=== PATIENT | male | born 1975 ===

== ENCOUNTER 2020-11-29 12:02 | Emergency (ER) | payer MEDICARE ==
--- NOTE | 2020-11-29 12:28 | Event Note ---
ED Screening Note ED Screening Note: Brought in by sister, history of developmental disability Sister is no longer able to care for all 3 brothers She states that they have been running away from home and getting into some trouble She states that she would like assistance in placing them somewhere She states that she talk to a mental health assistance and they advised to send to the ER This initial assessment/diagnostic orders/clinical plan/treatment(s) is/are subject to change based on patients health status, clinical progression and re- assessment by fellow clinical providers in the ED. Further treatment and workup at subsequent clinical providers discretion. Patient/guardian urged not to elope from the ED as their condition may be serious if not clinically assessed and managed. Initial orders include: Spoke with Dr. Cabezas, ER attending who advised to order the mental health clearance order set
[2020-11-29 12:30] VITALS: BP 153/69
[2020-11-29 13:05] LABS: Basophils # (Auto) 0.1 K/mm3 (0.0-0.1); Basophils % (Auto) 1.2 % (0.0-1.8); Eosinophils # (Auto) 0.3 K/mm3 (0.0-0.4); Eosinophils % (Auto) 4.1 % (0.0-4.3); Hematocrit 38.5 % (35.5-45.6); Hemoglobin 13.1 gm/dl (11.8-15.2); Lymphocytes # (Auto) 3.2 K/mm3 (1.2-5.4); Mean Corpuscular HGB Conc 34 % (32-34); Mean Corpuscular Volume 83 fl (84-94); Monocytes # (Auto) 0.5 K/mm3 (0.0-0.8); Monocytes % (Auto) 7.2 % (0.0-7.3); Platelet Count 303 K/mm3 (140-440); Red Blood Count 4.66 M/mm3 (3.65-5.03); Red Cell Distribution Width 14.6 % (13.2-15.2)
[2020-11-29 13:32] LABS: Alanine Aminotransferase 26 units/L (7-56); BUN/Creatinine Ratio 10; Blood Urea Nitrogen 12 mg/dL (9-20); Calcium 9.8 mg/dL (8.4-10.2); Hemolysis Index 1
--- NOTE | 2020-11-29 14:26 | Emergency Department Report ---
ED Psych HPI - General Chief Complaint: Medical Clearance Stated Complaint: MEDICAL CLEARANCE Time Seen by Provider: 11/29/20 12:26 Source: patient Mode of arrival: Ambulatory - History of Present Illness Initial Comments: Patient is 45 years old male with history of mental disability, hypertension diabetes. Patient brought to the emergency room by his sister accompanied by hi s 2 other brother with the same problem. Sister stated that she is worried about them getting hurt because they act friendly to people and people sometimes get angry with them and she had witnessed several times that somebody is pointing gun to them. She stated that she is unable to take care of them. She stated that sometimes he will become very aggressive in the house and start smashing things. He denied any suicidal or homicidal ideation. Patient stated that he is not hearing any voices or having visual hallucination. MD Complaint: other - Related Data Allergies Allergy/AdvReac Type Severity Reaction Status Date / Time No Known Allergies Allergy Unverified 11/29/20 12:27 ED Review of Systems ROS: Stated complaint: MEDICAL CLEARANCE Other details as noted in HPI Comment: All other systems reviewed and negative Constitutional: denies: chills, fever Respiratory: denies: cough, shortness of breath, SOB with exertion, SOB at rest Cardiovascular: denies: chest pain, palpitations Gastrointestinal: denies: abdominal pain, nausea, vomiting, diarrhea, constipation, hematemesis, melena, hematochezia Genitourinary: denies: urgency Musculoskeletal: denies: back pain Neurological: denies: headache, weakness, numbness, paresthesias, confusion, abnormal gait ED Past Medical Hx - Past Medical History Previous Medical History?: Yes Hx Hypertension: Yes Hx Diabetes: Yes - Social History Smoking Status: Never Smoker Substance Use Type: None ED Physical Exam - General Limitations: No Limitations General appearance: alert, in no apparent distress - Head Head exam: Present: atraumatic, normocephalic, normal inspection - Eye Eye exam: Present: normal appearance - ENT ENT exam: Present: normal exam, normal orophraynx, mucous membranes moist - Neck Neck exam: Present: normal inspection, full ROM. Absent: tenderness, meningismus, lymphadenopathy, thyromegaly - Respiratory Respiratory exam: Present: normal lung sounds bilaterally - Cardiovascular Cardiovascular Exam: Present: regular rate, normal rhythm, normal heart sounds - GI/Abdominal GI/Abdominal exam: Present: soft, normal bowel sounds. Absent: distended, tenderness, guarding, rebound, rigid, organomegaly, mass, bruit, pulsatile mass, hernia - Extremities Exam Extremities exam: Present: normal inspection, full ROM, normal capillary refill. Absent: tenderness, pedal edema, joint swelling, calf tenderness - Back Exam Back exam: Present: normal inspection, full ROM. Absent: CVA tenderness (R), CVA tenderness (L) - Neurological Exam Neurological exam: Present: alert, oriented X3, CN II-XII intact, normal gait, reflexes normal - Psychiatric Psychiatric exam: Present: normal mood - Skin Skin exam: Present: warm, intact, normal color ED Course Vital Signs 11/29/20 12:23 Temperature 98.0 F Pulse Rate 68 Respiratory 16 Rate Blood Pressure 153/69 O2 Sat by Pulse 98 Oximetry ED Medical Decision Making - Lab Data Result diagrams: 11/29/20 12:33 11/29/20 12:33 - Medical Decision Making Patient is 45 years old male with history of mental disability, hypertension diabetes. Patient brought to the emergency room by his sister accompanied by his 2 other brother with the same problem. Sister stated that she is worried about them getting hurt because they act friendly to people and people sometimes get angry with them and she had witnessed several times that somebody is pointing gun to them. She stated that she is unable to take care of them. She stated that sometimes he will become very aggressive in the house and start smashing things. He denied any suicidal or homicidal ideation. Patient stated that he is not hearing any voices or having visual hallucination. Labs reviewed and is unremarkable. Patient is medically cleared to be evaluated by psychiatric team. Patient has been evaluated by psychiatric team and patient does not need inpatient criteria. Patient also assessed by social service and model team crisis and advised intensive home care support. Critical care attestation.: If time is entered above; I have spent that time in minutes in the direct care of this critically ill patient, excluding procedure time. ED Disposition Clinical Impression: Medical clearance for psychiatric admission, Behavioral disorder Disposition: DC-01 TO HOME OR SELFCARE Is pt being admited?: No Condition: Stable Instructions: Cognitive Behavioral Therapy Referrals: PRIMARY CARE, [Primary Care Provider] - 3-5 Days
[2020-11-29 14:34] LABS: Bilirubin,Urine NEG (Negative); Blood,Urine LG (Negative); Color,Urine Yellow (Yellow); Mucus,Urine FEW /HPF; Protein,Urine <15 mg/dL mg/dL (Negative); Urobilinogen,Urine < 2.0 mg/dL (<2.0); WBC,Urine < 1.0 /HPF (0.0-6.0)
[2020-11-29 14:52] LABS: Amphetamine Screen,Urine Negative; Benzodiazepines Screen,Urine Negative; Cannabinoid Screen,Urine Negative; Cocaine Screen,Urine Negative; Methadone Screen,Urine Negative; Opiate Screen,Urine Negative
== END 2020-11-29 20:05 | disposition home or self-care (01) ==
LOC: ED 12:02
DX: F91.9 Conduct disorder, unspecified (principal); Z04.6 Encounter for general psychiatric examination, requested by authority; I10 Essential (primary) hypertension; E11.9 Type 2 diabetes mellitus without complications
CPT/HCPCS: 36415; 80053; 80307; 80320; 81001; 85025; G0480